=== PATIENT | female | born 1945 | race Caucasian/White ===

== ENCOUNTER → 2017-01-04 | Outpatient (CLI) | payer OTHER ==
--- NOTE | 2017-01-05 14:55 | SLEEP ---
DATE OF STUDY: 01/04/2017 SLEEP STUDY ATTENDING PHYSICIAN: Dr. Giorgi Romo. The patient is 71 years old who weighs 200 pounds with a BMI of 34. The patient's [place] score was 10. A split night study was performed at [facility]. During the night study, the patient spent 465 minutes in bed and slept for 297 minutes with a low sleep efficiency of 64%. Sleep latency was 5 minutes with an absence of REM sleep. Overall, sleep architecture showed increased stage I sleep, normal stage II sleep, absent slow wave and absent REM sleep. During the initial diagnostic portion of the study, the patient slept for 262 minutes. During this time, there were 19 obstructive apneas, no mixed or central apneas. There were 42 hypopneas. The patient's apnea hypopnea index was 14 per hour, supine index 14 per hour. REM sleep was not seen. Review of nocturnal oximetry study revealed a mean oxygen saturation 96% with the lowest of 68%. 25% of time oxygen saturation remained between 80% and 89% and 71% of the time between 70% and 79%. EKG monitoring revealed normal sinus rhythm PACs seen. Average heart rate was 88 beats per minute. No sustained arrhythmias were observed. No PLMS were seen. The patient did met the criteria for CPAP initiation; however, there was limited time due to the patient's poor sleep efficiency. At a pressure of 7 cm of water, the patient had 20 minutes of sleep and an AHI was 48 per hour. Optimum CPAP pressure was not achieved. The patient uses a small size nasal mask. IMPRESSION: 1. Mild sleep apnea-hypopnea syndrome at an AHI of 14 per hour. Absence of REM sleep can underestimate the severity of sleep apnea. 2. Moderate nocturnal hypoxia secondary to obstructive sleep apnea. 3. No clinically significant PLMS. RECOMMENDATIONS: 1. Optimum CPAP pressure was not achieved due to poor sleep efficiency and limited time with CPAP titration. I would recommend that patient should return to the sleep lab for full CPAP titration study. 2. Once optimal CPAP pressure is achieved, then follow up in 4-6 weeks to assess compliance with CPAP and to document clinical improvement. 3. Weight loss is strongly advised. 4. Avoid [employer] depressants. 5. Caution regarding driving until symptoms of sleep apnea resolve with the above recommendations. 6. If the patient does not want to undergo CPAP titration study, then oral appliance as recommended by the dentist would be another option. SANDRA SABILLON MD DR: PAKO/boogie JOB#: [id number] / [id number] GIORGI Estrella MD MTDD
== END | disposition home or self-care (01) ==
LOC: RT 18:56
PROVIDERS: ATTEND Family Medicine
DX: G47.33 Obstructive sleep apnea (adult) (pediatric) (principal); J96.91 Respiratory failure, unspecified with hypoxia; J44.9 Chronic obstructive pulmonary disease, unspecified
CPT/HCPCS: 95810